=== PATIENT | male | born 1945 | race Caucasian/White ===

== ENCOUNTER → 2019-06-14 | Outpatient (CLI) | payer OTHER ==
[~2019-06-14] VITALS: Ht 177.8 cm; Wt 96.2 kg
[~2019-06-14] MED LIST: COZ50 PO; GLU5 PO; GLU500 PO; MOT400 PO; ZOC10 PO
--- NOTE | 2019-06-14 11:19 | NUR ---
TESTS WITH CARDIAC CLEARANCE SENT TO [facility] FOR REVIEW. DR. MATI ORTEGA REQUESTS ECHO BE REPEATED BY TIME DATE GIVEN DR. DAVIDSON (ECHO 12-09-18) ALSO NEED CURRENT LABS. DR. GERMÁN POLANCO'S OFFICE CALLED AND INFORMED HIM OF THE NEED TO REPEAT ECHO. NURSE SOPKE WITH MANDEEP IN DR. Piotr POLANCO'S OFFICE. PATIENT WAS INSTRUCTED TO BE IN FOR LABS ON 06-13-19 FOR TODAY. [facility] WILL CALL PATIENT AND DR. DAVIDSON'S OFFICE FOR THE NEED OF THE TEST. [facility] SUGGESTS A NOTE FROM DR. DAVIDSON THAT HE HAD CLEARED HIM AGAIN. DR. GONZALEZ ORIGINAL CLEARANCE SATES POSSIBLE REPEAT IN 6MTHS TO 1 YEAR WHICH WAS TOLD TO MANDEEP IN DR. Piotr POLANCO'S OFFICE.
[2019-06-14 13:33] LABS: BASOPHIL % 0.6 % (0-2); PLATELET COUNT 238 x10^3mcL (130-400); RED CELL DISTRIBUTION WIDTH 12.9 % (11.5-14.5)
--- NOTE | 2019-06-14 13:35 | NUR ---
PATIENT HERE TO PRE-REGISTER FOR SURGERY. LABS DRAWN PER POLICY. EKG REPEATED REQUESTED. ECHO ORDERED PER REQUEST OF DR. Daniel PELAEZ IN ADM. AWARE.
[2019-06-14 13:42] LABS: ALBUMIN 3.9 g/dL (3.4-5.0); ALKALINE PHOSPHATASE 78 U/L (46-116); ALT/SGPT 33 U/L (16-63); AST/SGOT 19 U/L (15-37); BILIRUBIN TOTAL 0.3 mg/dL (0.20-1.00); CALCIUM 8.9 mg/dL (8.5-10.1); CARBON DIOXIDE 25.4 mmol/L (21-32); CHLORIDE SERUM 106 mmol/L (98-107); CREATININE SERUM 2.1 mg/dL (0.7-1.3); GLUCOSE SERUM 337 mg/dL (74-106); POTASSIUM SERUM 4.7 mmol/L (3.5-5.1); SODIUM SERUM 142 mmol/L (136-145); TOTAL PROTEIN, SERUM 7.4 g/dL (6.4-8.2)
--- NOTE | 2019-06-14 15:20 | NUR ---
1520 EKG AND LAB RESULTS GIVEN TO OR TELETYPIST FOR REVIEW BY DR. ORTEGA. CASE CANCELLED PER DR. ORTEGA AT THIS TIME DUE TO ELEVATED BLOOD GLUCOSE. CALLED AND NOTIFIED AVIS AT DR. GERMÁN ROBLES'S OFFICE OF CANCELLATION. AVIS FROM DR. ROBLES'S OFFICE TO NOTIFY PATIENT OF CANCELLATION.
== END | disposition home or self-care (01) ==
LOC: CA 10:00 → OR 06-15 11:30 → DS 06-15 11:30 → EDSTATUS 06-15 11:30
PROVIDERS: Surgery
DX: K40.90 Unilateral inguinal hernia, without obstruction or gangrene, not specified as recurrent (principal)